=== PATIENT | female | born 1980 | race Caucasian/White ===

== ENCOUNTER → 2020-07-14 | Outpatient (CLI) | payer MEDICARE, OTHER ==
[~2020-07-14] MED LIST: BACTRIM DS TAB1 EACH PO; CLARITIN10 MG PO; ELIQUIS5 MG PO; FENOFIBRATE160 MG PO; FISH OIL300 MG PO; GLUCOPHAGE1000 MG PO; GLUCOPHAGE500 MG PO; HUMALOG100 UNIT/1 SQ; HYDROXYZINE HCL25 MG PO; LIPITOR TAB 2020 MG PO; LOVASTATIN10 MG PO; LOW DOSE ASPIRI81 MG PO; NEURONTIN 300300 MG PO; NORVASC 5 MG TAB5 MG PO; PLAVIX75 MG PO; PREDNISONE20 MG PO; PRINIVIL20 MG PO; TENORMIN 25 MG25 MG PO; TOUJEO MAX300 UNIT/1 SQ; WELLBUTRIN SR100 MG PO; ZANTAC150 MG PO; ZOCOR10 MG PO
== END ==
LOC: LAB 09:47
PROVIDERS: Internal Medicine Nephrology
DX: N18.30 Chronic kidney disease, stage 3 unspecified (principal)
CPT/HCPCS: 36415; 80053; 82570; 84156

== ENCOUNTER → 2020-07-20 | Outpatient (CLI) | payer MEDICARE, OTHER | LOC: LAB 09:24 | PROVIDERS: Internal Medicine Nephrology | DX: E87.5 Hyperkalemia (principal) | CPT/HCPCS: 36415; 80048 ==

== ENCOUNTER → 2020-09-17 | Outpatient (CLI) | payer MEDICARE, OTHER | LOC: LAB 14:46 | PROVIDERS: Internal Medicine Nephrology | DX: N18.30 Chronic kidney disease, stage 3 unspecified (principal); E55.9 Vitamin D deficiency, unspecified | CPT/HCPCS: 36415; 80053; 82570; 84156 ==

== ENCOUNTER → 2020-12-15 | Outpatient (CLI) | payer MEDICARE, OTHER | LOC: LAB 12:03 | PROVIDERS: Physician Assistant Medical | DX: E11.9 Type 2 diabetes mellitus without complications (principal); I10 Essential (primary) hypertension | CPT/HCPCS: 36415; 80053; 80061; 83036 ==

== ENCOUNTER → 2021-02-11 | Outpatient (CLI) | payer MEDICARE, OTHER | LOC: LAB 11:52 | PROVIDERS: Internal Medicine Nephrology | DX: N18.30 Chronic kidney disease, stage 3 unspecified (principal) | CPT/HCPCS: 36415; 80053; 82570; 84156 ==

== ENCOUNTER → 2021-06-21 | Outpatient (CLI) | payer MEDICARE, OTHER | LOC: LAB 12:51 | PROVIDERS: Internal Medicine Nephrology | DX: N18.32 Chronic kidney disease, stage 3b (principal); E55.9 Vitamin D deficiency, unspecified | CPT/HCPCS: 36415; 80053; 82570; 84156 ==

== ENCOUNTER → 2021-08-17 | Outpatient (CLI) | payer MEDICARE, OTHER ==
[2021-08-17 13:20] LABS: HEMOGLOBIN 10.9 gm/dl (12.3-15.3); RED BLOOD COUNT 3.94 M/UL (4.00-5.10); WHITE BLOOD COUNT 6.2 K/UL (4.5-11.0)
[2021-08-18 08:15] LABS: A/G RATIO 1.8 (1.2-2.2); BILIRUBIN, TOTAL 0.3 mg/dL (0.0-1.2); CALCIUM, SERUM 8.8 mg/dL (8.7-10.2); CREATININE, SERUM 2.68 mg/dL (0.57-1.00); ESTIM. AVG GLU (EAG) 189 mg/dL (.); GLOBULIN, TOTAL 2.4 g/dL (1.5-4.5); HEMOGLOBIN A1C 8.2 % (4.8-5.6); POTASSIUM, SERUM 4.7 mmol/L (3.5-5.2); PROTEIN, TOTAL, SERUM 6.6 g/dL (6.0-8.5)
[2021-08-18 09:15] LABS: CHOLESTEROL, TOTAL 141 mg/dL (100-199); HDL CHOLESTEROL 32 mg/dL (>39); LDL CHOLESTEROL CALC 81 mg/dL (0-99); LDL/HDL RATIO 2.5 ratio (0.0-3.2); T. CHOL/HDL RATIO 4.4 ratio (0.0-4.4); TRIGLYCERIDES 163 mg/dL (0-149); VITAMIN D, 25-HYDROXY 16.2 ng/mL (30.0-100.0)
== END ==
LOC: LAB 12:20
PROVIDERS: Internal Medicine Nephrology; Physician Assistant Medical
DX: E11.22 Type 2 diabetes mellitus with diabetic chronic kidney disease (principal); I12.9 Hypertensive chronic kidney disease with stage 1 through stage 4 chronic kidney disease, or unspecified chronic kidney disease; N18.32 Chronic kidney disease, stage 3b; E55.9 Vitamin D deficiency, unspecified
CPT/HCPCS: 36415; 80053; 80061; 82570; 83036; 83970; 84100; 84156; 85027

== ENCOUNTER 2021-10-11 05:30 | Emergency (ER) | payer MEDICARE, OTHER ==
[2021-10-11] MEDS ORDERED: OMNICEF 300 MG300 MG PO ×2 (06:15→06:38)
[2021-10-11] MEDS ORDERED: DIFLUCAN150 MG PO (06:37)
== END 2021-10-11 07:00 | disposition home or self-care (01) ==
LOC: ER1 05:30
DX: N39.0 Urinary tract infection, site not specified (principal); R31.9 Hematuria, unspecified; E11.9 Type 2 diabetes mellitus without complications; I10 Essential (primary) hypertension; Z79.01 Long term (current) use of anticoagulants
CPT/HCPCS: 81001; 84703; 87077; 87086; 87186; 96372; 99283; J0696

== ENCOUNTER → 2021-10-26 | Outpatient (CLI) | payer MEDICARE, OTHER ==
[~2021-10-26] MED LIST changes: +DIFLUCAN150 MG PO; +OMNICEF 300 MG300 MG PO
== END ==
LOC: LAB 11:36
DX: N39.0 Urinary tract infection, site not specified (principal)
CPT/HCPCS: 87086

== ENCOUNTER 2022-02-21 19:32 | Emergency (ER) | payer MEDICARE, OTHER | END 2022-02-21 19:45 | disposition left against medical advice (07) | LOC: ER1 19:32 | DX: Z53.21 Procedure and treatment not carried out due to patient leaving prior to being seen by health care provider (principal) ==

== ENCOUNTER 2022-03-14 10:04 | Inpatient (IN) | payer MEDICARE, OTHER ==
[~2022-03-14] VITALS: Ht 175.3 cm; Wt 122.5 kg
[~2022-03-14 10:04] MED LIST changes: -NEURONTIN 300300 MG PO; +NEURONTIN300 MG PO; -TENORMIN 25 MG25 MG PO; +TENORMIN50 MG PO
[2022-03-14 11:28] LABS: HEMOGLOBIN 9.8 gm/dl (12.3-15.3); RED BLOOD COUNT 3.29 M/UL (4.00-5.10); WHITE BLOOD COUNT 5.5 K/UL (4.5-11.0)
[2022-03-14] MEDS ORDERED: HYDRALAZINE HCL25 MG PO (14:45)
[2022-03-14] MEDS ORDERED: AMLODIPINE BESY10 MG PO (14:45)
[2022-03-14] MEDS ORDERED: CHLORTHALIDONE25 MG PO (14:45)
[2022-03-14] MEDS ORDERED: LAMICTAL25 MG PO (14:48)
[2022-03-14] MEDS ORDERED: ONDANSETRON HCL4 MG PO (14:48)
[2022-03-14] MEDS ORDERED: PROTONIX20 MG PO (14:48)
[2022-03-14] MEDS ORDERED: OXYBUTYNIN CHLO15 MG PO (14:48)
[2022-03-14] MEDS ORDERED: NOVOLOG FL100 UNIT/1 INJ (14:48)
[2022-03-14] MEDS ORDERED: FLOMAX 0.4 MG0.4 MG PO (14:49)
[2022-03-14] MEDS ORDERED: BACTRIM DS TAB1 EACH PO (14:49)
[2022-03-14] MEDS ORDERED: PRAVASTATIN SOD80 MG PO (14:49)
[2022-03-14] MEDS ORDERED: NUEDEXTA 20-101 EACH PO (14:50)
[2022-03-14] MEDS ORDERED: LANTUS100 UNIT/1 SQ (14:50)
[2022-03-14] MEDS ORDERED: DIPHENHYDRAMINE25 M1 PO (14:51)
[2022-03-15 03:41] LABS: HEMOGLOBIN 9.4 gm/dl (12.3-15.3); RED BLOOD COUNT 3.18 M/UL (4.00-5.10); WHITE BLOOD COUNT 4.8 K/UL (4.5-11.0)
[2022-03-16 03:21] LABS: HEMOGLOBIN 9.4 gm/dl (12.3-15.3); RED BLOOD COUNT 3.13 M/UL (4.00-5.10)
[2022-03-18 01:23] LABS: HEMOGLOBIN 8.7 gm/dl (12.3-15.3); RED BLOOD COUNT 2.93 M/UL (4.00-5.10)
[2022-03-18] MEDS ORDERED: BUMETANIDE2 MG PO (16:09)
[2022-03-18] MEDS ORDERED: CEFDINIR300 MG PO (16:09)
== END 2022-03-18 19:06 | disposition home health service (06) | DRG 683 ==
LOC: ER1 10:04 → CDU 13:48 → M/S 13:48
PROVIDERS: Internal Medicine; Internal Medicine Nephrology; Physician Assistant; Physician Assistant Medical; ADMIT Internal Medicine
DX: N17.9 Acute kidney failure, unspecified (principal); I13.0 Hypertensive heart and chronic kidney disease with heart failure and stage 1 through stage 4 chronic kidney disease, or unspecified chronic kidney disease; L03.116 Cellulitis of left lower limb; I50.30 Unspecified diastolic (congestive) heart failure; E78.5 Hyperlipidemia, unspecified; Z20.822 Contact with and (suspected) exposure to COVID-19; E11.22 Type 2 diabetes mellitus with diabetic chronic kidney disease; N18.4 Chronic kidney disease, stage 4 (severe); E66.01 Morbid (severe) obesity due to excess calories; B96.20 Unspecified Escherichia coli [E. coli] as the cause of diseases classified elsewhere; F17.210 Nicotine dependence, cigarettes, uncomplicated; L97.529 Non-pressure chronic ulcer of other part of left foot with unspecified severity; E87.5 Hyperkalemia; Z86.73 Personal history of transient ischemic attack (TIA), and cerebral infarction without residual deficits; Z98.890 Other specified postprocedural states; Z80.3 Family history of malignant neoplasm of breast; Z82.49 Family history of ischemic heart disease and other diseases of the circulatory system; Z68.39 Body mass index [BMI] 39.0-39.9, adult
CPT/HCPCS: 36415; 70450; 71045; 80048; 80053; 81001; 82550; 82553; 82570; 82962; 83605; 83735; 84100; 84156; 84484; 85025; 85027; 85652; 86140; 87040; 87070; 87077; 87086; 87186; 87205; 93005; 93971; 94664; 94760; 96374; 99285; J0696; J1650; P9047; U0002